=== PATIENT | male | born 1970 ===

== ENCOUNTER 2019-01-24 09:22 | Emergency (ER) | payer BC ==
--- NOTE | 2019-01-24 09:39 | EDM.PDOC ---
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 Past medical history: As per history of present illness and as reviewed below otherwise noncontributory. Surgical history: As per history of present illness and as reviewed below otherwise noncontributory. Social history: No reported history of drug or alcohol abuse. Family history: As per history of present illness and as reviewed below otherwise noncontributory. Physical exam: HEENT: Atraumatic, normocephalic, pupils reactive, negative for conjunctival pallor or scleral icterus, mucous membranes moist, throat clear, neck supple, nontender, trachea midline. Lungs: Clear to auscultation, breath sounds equal bilaterally, chest nontender. Heart: S1S2, regular, negative for clicks, rubs, or JVD. Abdomen: Soft, nondistended, nontender. Negative for masses or hepatosplenomegaly. Negative for costovertebral tenderness. Pelvis: Stable nontender. Genitourinary: Deferred. Rectal: Deferred. Extremities: Atraumatic, negative for cords or calf pain. Neurovascular unremarkable. Neuro: Awake, alert, oriented. Cranial nerves II through XII unremarkable. Cerebellum unremarkable. Motor and sensory unremarkable throughout. Exam nonfocal. Diagnostics: X-ray left femur/tib-fib Therapeutics: None Impression: #1 left lower extremity pain etiology to be determined probable muscle skeletal Definitive disposition and diagnosis as appropriate pending reevaluation and review of above. Left leg Pain Score (Numeric/FACES): 8 - Related Data Allergies Allergy/AdvReac Type Severity Reaction Status Date / Time No Known Allergies Allergy Verified 01/24/19 09:31 Home Meds: Home Meds . [No Known Home Meds] 01/24/19 [History] Past Medical History HEENT History: Reports: None Cardiovascular History: Reports: Hypertension Respiratory History: Reports: None Gastrointestinal History: Reports: None Genitourinary History: Reports: None Musculoskeletal History: Reports: None Neurological History: Reports: None Psychiatric History: Reports: None Endocrine/Metabolic History: Reports: None Hematologic History: Reports: None Immunologic History: Reports: None Oncologic (Cancer) History: Reports: None Dermatologic History: Reports: None - Past Surgical History Head Surgeries/Procedures: Reports: None HEENT Surgical History: Reports: None Cardiovascular Surgical History: Reports: None Respiratory Surgical History: Reports: None GI Surgical History: Reports: None Male Surgical History: Reports: None Endocrine Surgical History: Reports: None Neurological Surgical History: Reports: None Musculoskeletal Surgical History: Reports: None Oncologic Surgical History: Reports: None Dermatological Surgical History: Reports: None Social & Family History - Family History Family Medical History: Noncontributory - Tobacco Use Smoking Status *Q: Never Smoker Second Hand Smoke Exposure: No - Caffeine Use Caffeine Use: Reports: Coffee - Recreational Drug Use Recreational Drug Use: No Review of Systems - Review of Systems Review Of Systems: ROS reveals no pertinent complaints other than HPI. ED EXAM, GENERAL - Physical Exam Exam: See Below (See dictation) Course - Vital Signs Last Recorded V/S: Last Vital Signs Temp 36.5 C 01/24/19 09:28 Pulse 96 01/24/19 09:28 Resp 18 01/24/19 09:28 BP 168/110 H 01/24/19 09:28 Pulse Ox 97 01/24/19 09:28 - Orders/Labs/Meds Orders: Active Orders 24 hr Category Date Time Status Femur Min 2V Lt [CR] Stat Exams 01/24/19 09:36 Ordered Tibia Fibula Lt [CR] Stat Exams 01/24/19 09:36 Ordered Departure - Departure Time of Disposition: 09:38 Disposition: Home, Self-Care 01 Condition: Good Clinical Impression: Lower extremity pain - Discharge Information Referrals: PCP,None [Primary Care Provider] - Additional Instructions: The following information is given to patients seen in the emergency department who are being discharged to home. This information is to outline your options for follow-up care. We provide all patients seen in our emergency department with a follow-up referral. The need for follow-up, as well as the timing and circumstances, are variable depending upon the specifics of your emergency department visit. If you don't have a primary care physician on staff, we will provide you with a referral. We always advise you to contact your personal physician following an emergency department visit to inform them of the circumstance of the visit and for follow-up with them and/or the need for any referrals to a consulting specialist. The emergency department will also refer you to a specialist when appropriate. This referral assures that you have the opportunity for followup care with a specialist. All of these measure are taken in an effort to provide you with optimal care, which includes your followup. Under all circumstances we always encourage you to contact your private physician who remains a resource for coordinating your care. When calling for followup care, please make the office aware that this follow-up is from your recent emergency room visit. If for any reason you are refused follow-up, please contact the [facility] emergency department at and asked to speak to the emergency department charge nurse. [facility] - [facility] Professional [address], [address] [place] [address] Diclofenac as prescribed follow-up orthopedic clinic above return as needed as discussed - My Orders Last 24 Hours: My Active Orders 01/24/19 09:36 Femur Min 2V Lt [CR] Stat Tibia Fibula Lt [CR] Stat - Assessment/Plan Last 24 Hours: My Active Orders 01/24/19 09:36 Femur Min 2V Lt [CR] Stat Tibia Fibula Lt [CR] Stat
--- NOTE | 2019-01-24 10:31 | CR ---
INDICATION: Pain TECHNIQUE: 2-view left tibia and fibula. COMPARISON: none FINDINGS: The knee and ankle are anatomically aligned. There is no evidence of a fracture or intrinsic bone lesion within the tibia and fibula. The soft tissues appear normal. IMPRESSION: Negative left tibia and fibula. Dictated by Narinder Penn MD @ Jan 24 2019 10:28AM Signed by Dr. Narinder Penn @ Jan 24 2019 10:29AM
--- NOTE | 2019-01-24 10:33 | CR ---
INDICATION: Pain COMPARISON: none TECHNIQUE: Two-view left femur FINDINGS: The left hip and knee are anatomically aligned. There is no evidence of fracture, erosion or intrinsic bone lesion. The soft tissues appear normal. IMPRESSION: Negative left femur. Dictated by Narinder Penn MD @ Jan 24 2019 10:29AM Signed by Dr. Narinder Penn @ Jan 24 2019 10:30AM
== END 2019-01-24 10:33 | disposition home or self-care (01) ==
LOC: MW.ED 09:22
DX: M79.662 Pain in left lower leg (principal); I10 Essential (primary) hypertension
CPT/HCPCS: 73552-26-LT; 73552-LT; 73590-26-LT; 73590-LT; 99283; 99283-25